=== PATIENT | female | born 1965 | race Two or more races ===

== ENCOUNTER 2025-05-29 08:35 | Outpatient (CLI) | payer OTHER | END 2025-05-29 08:38 | disposition home or self-care (01) | LOC: SONOGRAMA 08:35 | PROVIDERS: ATTEND Pathology Anatomic Pathology | DX: D34 Benign neoplasm of thyroid gland (principal); E07.89 Other specified disorders of thyroid; D44.0 Neoplasm of uncertain behavior of thyroid gland ==